=== PATIENT | male | born 1970 | race African-American/Black ===

== ENCOUNTER 2019-12-16 09:36 | Emergency (ER) | payer BC | END 2019-12-16 10:15 | disposition home or self-care (01) | LOC: NAV ERS 09:36 | DX: S46.811A Strain of other muscles, fascia and tendons at shoulder and upper arm level, right arm, initial encounter (principal); I10 Essential (primary) hypertension; F17.220 Nicotine dependence, chewing tobacco, uncomplicated; Z79.899 Other long term (current) drug therapy; W01.0XXA Fall on same level from slipping, tripping and stumbling without subsequent striking against object, initial encounter | CPT/HCPCS: 99283 ==